=== PATIENT | male | born 1995 | race Caucasian/White ===

== ENCOUNTER 2018-04-06 17:34 | Emergency (ER) | payer OTHER ==
[~2018-04-06] VITALS: Ht 170.2 cm; Wt 72.7 kg
[2018-04-06 17:46] VITALS: Ht 170.2 cm; Wt 72.7 kg
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
[2018-04-06 18:50] VITALS: BP 172/93; PULSE 88; RESP 18
== END 2018-04-06 18:53 | disposition home or self-care (01) ==
LOC: FTE 17:34
DX: S01.81XA Laceration without foreign body of other part of head, initial encounter (principal); V18.4XXA Pedal cycle driver injured in noncollision transport accident in traffic accident, initial encounter
CPT/HCPCS: 12011; Z7502